=== PATIENT | male | born 1965 | race Caucasian/White ===

== ENCOUNTER 2017-02-19 21:20 | Emergency (ER) | payer SELFPAY ==
[~2017-02-19] VITALS: Ht 149.9 cm; Wt 51.7 kg
[~2017-02-19 21:20] MED LIST: ANTIVERT12.5 MG PO; GLU5 PO; GLU850 PO; SYN1 PO
[2017-02-20 00:13] VITALS: BP 106/60
== END 2017-02-20 00:13 | disposition home or self-care (01) ==
LOC: ED 21:20
DX: R10.33 Periumbilical pain (principal); E11.9 Type 2 diabetes mellitus without complications